=== PATIENT | female | born 1970 | race Caucasian/White ===

== ENCOUNTER 2022-09-07 08:13 | Outpatient (CLI) | payer BC, SELFPAY ==
[2022-09-07 17:38] LABS: MALB Creatinine Ratio 24.4 mg/g (0-30)
== END 2022-09-07 08:14 | disposition home or self-care (01) ==
LOC: ANHWCLAB 08:15
PROVIDERS: PCP Family Medicine; Visit Provider Internal Medicine Endocrinology, Diabetes & Metabolism
DX: E11.9 Type 2 diabetes mellitus without complications (principal); E04.9 Nontoxic goiter, unspecified
CPT/HCPCS: 36415; 82043; 83036; 84443

== ENCOUNTER 2023-05-13 18:14 | Emergency (ER) | payer SELFPAY ==
[2023-05-13 18:24] VITALS: BP 182/95; PULSE 103; RESP 18; TEMP 36.8; O2SAT 100
[2023-05-13 18:30] VITALS: O2SAT 100
[2023-05-13 18:58] VITALS: BP 165/96; PULSE 88; RESP 18; O2SAT 98
[2023-05-13 19:05] LABS: Strep Group A RT-PCR NOT DETECTED (Negative)
[2023-05-13 19:15] LABS: SARS-CoV-2 RNA PCR Negative (Negative)
[2023-05-13 19:17] LABS: Influenza A QL RT-PCR Positive (Negative); Influenza B QL RT-PCR Negative (Negative); RSV RNA, RT-PCR Negative (Negative)
--- NOTE | 2023-05-13 19:24 | ED.URI ---
HPI - URI/Sore Throat General Chief Complaint: Upper Respiratory Infection Stated Complaint: fever and sore throat Time Seen by Provider: 05/13/23 18:20 Source: patient Mode of arrival: ambulatory Limitations: no limitations History of Present Illness HPI Narrative: Patient is a 52-year-old female with significant past medical history presents today for URI symptoms. Patient has had cough, congestion, rhinorrhea, sore throat for the past 5 days. She is taking OTC medications with no relief. 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 She also does complain of body aches and how her symptoms resemble fluid. She has also had fevers on and off to 102. MD elicited complaint: fever, cough, sore throat, rhinorrhea, nasal congestion and sinus pain Onset (ago): day(s) Consistency: progressively worsening Severity: mild Description of mucous: yellow and green Able to tolerate fluids by mouth: Yes Exacerbating factors: speaking Relieving factors: nothing Context: sick contacts Associated symptoms: fever, chills, myalgias, headache, rhinorrhea, nasal congestion, sore throat and cough Treatments prior to arrival: acetaminophen, ibuprofen and cold medicine Related Data Home Medications Medication Instructions Recorded Confirmed ibuprofen 200 mg tablet 800 mg PO Q6H PRN Pain 06/13/22 05/13/23 insulin glargine-yfgn 100 unit/mL 10 unit subcut DAILY 01/10/23 05/13/23 (3 mL) subcutaneous pen (Semglee (insulin glargine-yfgn) Pen) Allergies Allergy/AdvReac Type Severity Reaction Status Date / Time Penicillins Allergy Mild rash Verified 05/13/23 18:21 Sulfa (Sulfonamide Allergy Mild Rash Verified 05/13/23 18:21 Antibiotics) Review of Systems Review of Systems: All systems reviewed & are unremarkable except as noted in HPI and below Constitutional: Constitutional: Reports as per HPI Eyes: Eyes: Reports no additional eye complaints ENT: Reports as per HPI, Reports dysphagia, Reports nasal congestion and Reports sore throat Cardiovascular: Cardiovascular: Reports no additional cardiovascular complaints Respiratory: Respiratory: Reports as per HPI, Reports chest congestion and Reports cough Gastrointestinal: Gastrointestinal: Reports no additional gastrointestinal complaints Genitourinary: Genitourinary: Reports no additional female genitourinary complaints Musculoskeletal: Musculoskeletal: Reports no additional musculoskeletal complaints Integumentary/Breasts: Skin/Breast: Reports system reviewed and no additional complaints, except as docu Neurologic: Reports system reviewed and no additional complaints, except as documented Psychiatric: Psychiatric: Reports no additional psychiatric complaints Endocrine: Endocrine: Reports no additional endocrine complaints Hematologic/Lymphatic: Hematologic/Lymphatic: Reports no additional hematologic/lymphatic complaints Allergic/Immunologic: Allergic/Immunologic: Reports no additional allergic/immunologic complaints PMFSH Surgical History Surgical History S/P cholecystectomy Social History Social History Smoking status: Never smoker Alcohol intake: never Substance use: never Exam Const: General: healthy appearing Nutritional Appearance: well nourished Orientation/consciousness: patient oriented x3 Limitations: no limitations HENMT: Head: normal to inspection Ears: external ears normal Face/Nose/Sinus: Nasal discharge present Face and sinus: sinus tenderness Mouth: Yes Normal oral and palatal mucosa present Teeth and gingiva: dentition normal Throat: posterior oropharynx normal Eyes: Conjunctivae: conjunctivae normal Pupils: Equal, round and reactive pupils present EOM: EOMs intact bilaterally Neck: Neck: normal visual inspection Chest: Chest palpation & inspection: normal inspection of the chest Resp: Effort &
[2023-05-13 19:35] VITALS: BP 172/104; PULSE 91; RESP 20; TEMP 38.2; O2SAT 91
== END 2023-05-13 19:37 | disposition home or self-care (01) ==
PROVIDERS: Emergency Provider Family Medicine; PCP Physician Assistant
DX: J10.1 Influenza due to other identified influenza virus with other respiratory manifestations (principal); J01.90 Acute sinusitis, unspecified; B96.89 Other specified bacterial agents as the cause of diseases classified elsewhere; Z79.4 Long term (current) use of insulin; Z79.1 Long term (current) use of non-steroidal anti-inflammatories (NSAID); Z20.822 Contact with and (suspected) exposure to COVID-19
CPT/HCPCS: 87637; 87651; 99283

== ENCOUNTER 2023-10-28 20:30 | Emergency (ER) | payer SELFPAY ==
--- NOTE | 2023-10-28 20:34 | ED.HA ---
HPI - Headache General Chief Complaint: Headache Stated Complaint: Migraine Time Seen by Provider: 10/28/23 20:32 Source: patient Mode of arrival: ambulatory Limitations: no limitations History of Present Illness HPI Narrative: Patient is a 52-year-old female with a right post ophthalmic and right post occipital migraine. She has a history of migraines. This is a similar headache to prior headaches. She said this 1 is bothering her now for 2 days. Associated nausea. MD elicited complaint: headache and migraine Onset (ago): day(s) (2) Onset description: gradually Location: right, occipital and retro-orbital Severity: moderate Pain scale (0-10): 8 Quality & Timing: throbbing, sharp and steady Exacerbating factors: light and noise Relieving factors: nothing Associated symptoms: nausea Treatments prior to arrival: none Related Data Home Medications Medication Instructions Recorded Confirmed ibuprofen 200 mg tablet 800 mg PO Q6H PRN Pain 06/13/22 10/28/23 Allergies Allergy/AdvReac Type Severity Reaction Status Date / Time Penicillins Allergy Mild rash Verified 05/13/23 18:21 Sulfa (Sulfonamide Allergy Mild Rash Verified 05/13/23 18:21 Antibiotics) Review of Systems Review of Systems: All systems reviewed & are unremarkable except as noted in HPI and below Constitutional: Constitutional: Reports no additional constitutional complaints Eyes: Eyes: Reports no additional eye complaints ENT: Reports system reviewed and no additional complaints, except as documented Cardiovascular: Cardiovascular: Reports no additional cardiovascular complaints Respiratory: Respiratory: Reports no additional respiratory complaints Gastrointestinal: Gastrointestinal: Reports no additional gastrointestinal complaints Genitourinary: Genitourinary: Reports no additional female genitourinary complaints Musculoskeletal: Musculoskeletal: Reports no additional musculoskeletal complaints Integumentary/Breasts: Skin/Breast: Reports system reviewed and no additional complaints, except as docu Neurologic: Reports system reviewed and no additional complaints, except as documented Psychiatric: Psychiatric: Reports no additional psychiatric complaints Endocrine: Endocrine: Reports no additional endocrine complaints Hematologic/Lymphatic: Hematologic/Lymphatic: Reports no additional hematologic/lymphatic complaints Allergic/Immunologic: Allergic/Immunologic: Reports no additional allergic/immunologic complaints PMFSH Surgical History Surgical History S/P cholecystectomy Social History Social History Smoking status: Never smoker Alcohol intake: never Substance use: never Exam Const: General: healthy appearing Nutritional Appearance: well nourished Orientation/consciousness: patient oriented x3 HENMT: Head: normal to inspection Ears: external ears normal Face/Nose/Sinus: Normal external nose present Eyes: Conjunctivae: conjunctivae normal Pupils: Equal, round and reactive pupils present EOM: EOMs intact bilaterally Neck: Neck: normal visual inspection Chest: Chest palpation & inspection: normal inspection of the chest Resp: Effort & Inspection: normal respiratory effort and not labored Auscultation: clear to auscultation bilaterally Cardio: Rate: regular rate Rhythm: regular rhythm Heart sounds: no murmurs GI: Inspection: non-distended GI Palp: Yes Soft to palpation and No Tenderness to palpation present (GI) Auscultation: normal bowel sounds : General: Yes bladder normal to palpation Back/Spine/Pelvis: Back: no CVA tenderness Skin: General skin exam: normal color Rashes: no rashes Wounds: no wounds Neuro: General: patient oriented x3 Cranial nerves: Yes Nystagmus not present Speech: normal speech Extrem: General: normal to inspection Psych: Mental Status: mental status gross
[2023-10-28 20:35] VITALS: BP 187/101; PULSE 95; RESP 18; TEMP 37.5; O2SAT 95
[2023-10-28] MEDS: SODIUM CHLORIDE 0.9% IV 1,000 ML 999 ML IV CONT (20:48)
[2023-10-28] MEDS: KETOROLAC 30 MG/ML VIAL (*BKC) IV PUSH (20:49)
[2023-10-28] MEDS: METOCLOPRAMIDE HCL INJ 10 MG/2 ML VIAL IV PUSH (20:49)
[2023-10-28] MEDS: diphenhydrAMINE HCl INJ 50 MG/ML VIAL 25 MG IV PUSH (20:49)
[2023-10-28 20:57] VITALS: BP 159/87; PULSE 93; RESP 18; O2SAT 93
[2023-10-28 21:03] VITALS: BP 165/95; PULSE 92; RESP 18; O2SAT 96
--- NOTE | 2023-10-28 21:05 | PC.NURSE ---
lights have been turned off. towel covering her eyes. blood pressure, pulse ox and heart rate being monitored. call light in reach. patient denies any needs at this time
[2023-10-28 21:32] VITALS: BP 144/64; O2SAT 95
--- NOTE | 2023-10-28 21:55 | PC.NURSE ---
patient reports that she feels better at this time. she is ready to go home. patient has approx 300ml left in ns bag. will finish infusion then work on discharge per ER provider
[2023-10-28 22:01] VITALS: BP 145/63; O2SAT 95
== END 2023-10-28 22:24 | disposition home or self-care (01) ==
PROVIDERS: Emergency Provider Emergency Medicine; PCP Family Medicine
DX: R51.9 Headache, unspecified (principal)
CPT/HCPCS: 96361; 96374; 96375; 99284; J1200; J1885; J2765; J7030

== ENCOUNTER 2025-04-11 17:18 | Emergency (ER) | payer SELFPAY ==
[2025-04-11] VITALS (9 sets, daily range): BP systolic 100–186; BP diastolic 79–122; PULSE 78–105; RESP 16–100; TEMP 36.9; O2SAT 93–100
--- NOTE | ~2025-04-11 | CT_ITS ---
[facility] EXAMINATION: CT abdomen pelvis w con COMPARISON: None HISTORY: Onset this AM, LUQ Abdominal pain/ vomiting; worsening TECHNIQUE: Axial images were obtained through the abdomen, pelvis post administration of IV contrast. Oral contrast was also administered. Coronal reconstruction images were obtained from the axial views. CT scan performed using dose optimization techniques including the following automated exposure control; adjustment of mA and/or kV; use of iterative reconstruction technique. Automatic exposure control was used to reduce radiation dose. Permanent radiation dose record is archived to PACS. FINDINGS: CT abdomen: LUNG BASES: The lung bases are clear. The visualized portions of the heart and pericardium are unremarkable. LIVER: Unremarkable, liver contours intact, no lesions. SPLEEN: Unremarkable. KIDNEYS: Right Kidney: Unremarkable. No calculi. No hydronephrosis. Left Kidney: Unremarkable. No calculi. No hydronephrosis ADRENAL GLANDS: Unremarkable. PANCREAS: Unremarkable. GALLBLADDER/BILIARY: Post cholecystectomy. STOMACH AND ESOPHAGUS: Small hiatal hernia. BOWEL/MESENTERY: Moderate fecal content. No colitis or diverticulitis. Appendix normal. Mesentery normal. There are no thickened or dilated loops of small bowel. ADENOPATHY/RETROPERITONEUM: No lymphadenopathy. AORTA/VASCULATURE: Normal caliber aorta. FREE FLUID OR FREE AIR: No free fluid.. CT pelvis: SOLID ORGANS/REPRODUCTIVE: Post hysterectomy. No adnexal mass. BLADDER: Within normal limits. OSSEOUS STRUCTURES: No acute osseous abnormality.No suspicious lesions. OVERLYING SOFT TISSUES: Unremarkable. IMPRESSION: 1. No etiology to explain left upper quadrant pain Reviewed, dictated and finalized at location [facility]
[2025-04-11] MEDS: PROCHLORPERAZINE EDISYLATE 10 MG/2 ML VIAL IV PUSH (17:51)
[2025-04-11] MEDS: SODIUM CHLORIDE 0.9% IV 1,000 ML 999 ML IV CONT (17:51)
[2025-04-11] MEDS: PANTOPRAZOLE SODIUM IV 40 MG VIAL IV PUSH (17:51)
[2025-04-11 18:14] LABS: Alanine Aminotransferase 32 U/L (6-35); Albumin Level 4.7 g/dL (3.5-5.1); Alkaline Phosphatase 84 U/L (38-126); Anion Gap 10 mmol/L (4-12); Aspartate Amino Transferase 34 U/L (14-36); Bilirubin,Total 0.7 mg/dL (0.2-1.3); Blood Urea Nitrogen 12 mg/dL (7-17); Calcium 9.4 mg/dL (8.4-10.2); Carbon Dioxide 27 mmol/L (22-30); Chloride 102 mmol/L (98-107); Estimated CRCL calculation 95 ml/min; Estimated Glomerular Filt Rate > 60; Glucose 139 mg/dL (65-110); Lipase 132 U/L (23-300); Osmolality Calculated 289 mOsm/kg (285-295); Potassium 3.4 mmol/L (3.4-5.0); Sodium 139 mmol/L (137-145); Total Protein 8.0 g/dL (6.3-8.2)
[2025-04-11 18:18] LABS: INR 1.0; Partial Thromboplastin Time 27.1 Sec (23.9-30.70); Prothrombin Time 10.9 Seconds (9.50-12.1)
[2025-04-11 18:19] LABS: Hematocrit 40.7 % (35.0-49.0); Hemoglobin 13.1 g/dL (12.0-15.0); Immature Granulocyte Percent A 0.4 % (0.0-0.0); Lymphocytes Absolute Auto 1.08 K/mm3 (1.10-4.50); Mean Corpuscular HGB Conc 32.2 g/dL (32-36); Mean Corpuscular Hemoglobin 28.2 pg (27.0-31.0); Mean Corpuscular Volume 87.7 fL (78.0-102.0); Nucleated Red Blood Cells Absolute Auto 0.00 K/mm3 (0.00-0.00); Nucleated Red Blood Cells Perc 0.0 % (0-0.0); Platelet Count Result 254 K/mm3 (150-420); Red Blood Count 4.64 M/mm3 (4.20-5.40); White Blood Count 10.6 K/mm3 (4.8-10.8)
--- NOTE | 2025-04-11 18:52 | PC.NURSE ---
ASSUMED CARE. REPORT RECEIVED FROM GRECIA CHOUDHARY. PATIENT IS CURRENTLY RESTING ON STRETCHER. IV FLUIDS COMPLETED. CURRENTLY WAITING ON TEST RESULTS. CALL LIGHT IN REACH.
--- NOTE | 2025-04-11 19:24 | ED_ITS ---
HPI - Nausea/Vomiting/Diarrhea General Chief complaint: Nausea/Vomiting/Diarrhea Stated complaint: vomiting Time Seen by Provider: 04/11/25 17:22 Source: patient Mode of arrival: ambulatory Limitations: no limitations History of Present Illness HPI Narrative: This is a 54-year-old female with history of diabetes apparently had some food from [employer] yesterday and has been having nausea vomiting with no fever chills mild abdominal discomfort mainly epigastric with no fever chills no diarrhea constipation no chest pain or shortness of breath. MD elicited complaint: nausea and vomiting Onset (ago): hour(s) Description of vomiting: watery Associated nausea: Yes Associated abdominal pain: Yes Location of pain: epigastric Pain consistency: constant Severity: mild Related Data Home Medications ?Medication ?Instructions ?Recorded ?Confirmed ?Last Taken ?Type ibuprofen 200 mg tablet 800 mg PO Q6H PRN Pain 06/1308/11/24 Unknown History Allergies Allergy/AdvReac Type Severity Reaction Status Date / Time Penicillins Allergy Mild rash Verified 04/11/25 17:23 Sulfa (Sulfonamide Allergy Mild Rash Verified 04/11/25 17:23 Antibiotics) Review of Systems 2 Review of Systems: All systems reviewed & are unremarkable except as noted in HPI and below PMFSH Surgical History Surgical History S/P cholecystectomy Social History Social History Smoking status: Never smoker Alcohol intake: never Substance use: never Exam 2 Const: General: healthy appearing and no acute distress Nutritional Appearance: well nourished Orientation/consciousness: patient oriented x3 Limitations: no limitations Neck: Neck: normal visual inspection, no lymphadenopathy and no meningeal signs Chest: Chest palpation & inspection: normal inspection of the chest Resp: Effort & Inspection: normal respiratory effort Auscultation: clear to auscultation bilaterally Cardio: Rate: regular rate Rhythm: regular rhythm GI: GI Palp: Yes Soft to palpation and Yes Tenderness to palpation present (GI) Auscultation: normal bowel sounds : General: Yes bladder normal to palpation Course Course Emergency Course: Medical decision making narrative: Patient was evaluated by myself in the emergency department. History obtained from the patient was independent historian and physical exam performed and witnessed by nurse. Labs performed were unremarkable reviewed with patient, patient received a L of normal saline a dose of Compazine and IV Protonix and after reassessment patient's discomfort has markedly improved. Repeat assessment: Patient is doing well on repeat exam no acute distress Symptoms have improved since arrival to the emergency department Repeat vitals are stable Patient agrees with this discussion after shared medical decision-making and agrees with discharge CT scan performed shows no acute intra-abdominal abnormalities All questions answered to the patient's satisfaction. Advised patient follow-up in 3 to 5 days. Vital Signs Vital signs: Vital Signs Temperature 36.9 C 04/11/25 17:18 Pulse Rate 105 H 04/11/25 17:18 Respiratory Rate 16 04/11/25 17:18 Blood Pressure 186/95 H 04/11/25 17:18 Pulse Oximetry 96 04/11/25 17:18 Oxygen Delivery Room Air 04/11/25 17:18 Temperature 36.9 C 04/11/25 17:18 Pulse Rate 100 04/11/25 18:36 Respiratory Rate 20 04/11/25 18:36 Blood Pressure 169/122 H 04/11/25 18:36 Pulse Oximetry 98 04/11/25 18:36 Oxygen Delivery Room Air 04/11/25 17:18 MDM Differential Diagnosis Differential Diagnosis: Gastroenteritis Lab Data 04/11/25 17:55 04/11/25 17:55 Labs: Lab Results 04/11/25 Range/Units 17:55 WBC 10.6 (4.8-10.8) K/mm3 RBC 4.64 (4.20-5.40) M/mm3 Hgb 13.1 (12.0-15.0) g/dL Hct 40.7 (35.0-49.0) % MCV 87.7 (78.0-102.0) fL MCH 28.2 (27.0-31.0) pg MCHC 32.2 (32-36) g/dL RDW 12.6 (11.6-14.4) % Plt Count 254 (150-420) K/mm3 MPV 9.3 (9.2-11.8) fl Immature Gran % (Auto) 0.4 H (0.0-0.0) % Neut % (Auto) 87.1 H (50.0-70.0) % Lymph % (Auto) 10.2 L (18.0-42.0) % [place] % (Auto) 1.9 L (2.0-11.0) % Eos % (Auto) 0.1 L (1.0-6.0) % Baso % (Auto) 0.3 (0.0-1.0) % Lymph # (Auto) 1.08 L (1.10-4.50) K/mm3 [place] # (Auto) 0.20 (0.10-0.90) K/mm3 Eos # (Auto) 0.01 L (0.02-0.50) K/mm3 Baso # (Auto) 0.03 (0.00-0.10) K/mm3 Abs Immat Gran (auto) 0.04 H (0.00-0.00) K/mm3 Absolute Neuts (auto) 9.20 H (1.70-7.20) K/mm3 Absolute Nucleated RBC 0.00 (0.00-0.00) K/mm3 Nucleated RBC % 0.0 (0-0.0) % PT 10.9 (9.50-12.1) Seconds INR 1.0 APTT 27.1 (23.9-30.70) Sec Sodium 139 (137-145) mmol/L Potassium 3.4 (3.4-5.0) mmol/L Chloride 102 (98-107) mmol/L Carbon Dioxide 27 (22-30) mmol/L Anion Gap 10 (4-12) mmol/L BUN 12 (7-17) mg/dL Creatinine 0.70 (0.7-1.0) mg/dL Estim Creat Clear Calc 95 ml/min Estimated GFR > 60 (59 - ) Glucose 139 H (65-110) mg/dL Calculated Osmolality 289 (285-295) mOsm/kg Lactic Acid 1.5 (0.7-2.0) mmol/L Calcium 9.4 (8.4-10.2) mg/dL Total Bilirubin 0.7 (0.2-1.3) mg/dL AST 34 (14-36) U/L ALT 32 (6-35) U/L Alkaline Phosphatase 84 (38-126) U/L Total Protein 8.0 (6.3-8.2) g/dL Albumin 4.7 (3.5-5.1) g/dL Lipase 132 (23-300) U/L Imaging Data Radiologist's impression: ITS Impressions Abdomen/Pelvis CT 04/11/25 18:59 IMPRESSION: 1. No etiology to explain left upper quadrant pain Critical Care Time Critical Care Time Critical Care Time: No Discharge Plan Discharge Clinical Impression: Gastroenteritis Patient Disposition: Home Condition: Stable Instructions: Antibiotic Form, Gastroenteritis (ED), Acute Nausea and Vomiting (ED) Additional Instructions: Advised take medication as prescribed and to follow with primary care physician within next 3 to 5 days for further evaluation treatment. Patient Language: Luxembourgish Prescriptions: New prochlorperazine maleate [Compazine] 10 mg tablet 10 mg PO Q6H PRN (Reason: nausea and vomiting) Qty: 14 0RF No Action (DME) pen needle, diabetic 32 gauge x 5/32 needle See Rx Instructions .ROUTE .MEDSUPPLY Qty: 100 2RF Rx Instructions: As directed semaglutide 2 mg/dose (8 mg/3 mL) pen injector 2 mg subcut WEEKLY 90 Days Qty: 9 2RF atorvastatin 20 mg tablet 20 mg PO DAILY Qty: 90 2RF (DME) Dexcom G7 Sensor Device See Rx Instructions .Route Qty: 9 2RF Rx Instructions: change every 10 days losartan 25 mg tablet 25 mg PO DAILY Qty: 90 2RF ibuprofen 200 mg tablet 800 mg PO Q6H PRN (Reason: Pain) insulin glargine [Lantus Solostar U-100 Insulin] 100 unit/mL (3 mL) insulin pen 10 unit subcut DAILY 90 Days Qty: 9 2RF cholecalciferol (vitamin D3) 1,250 mcg (50,000 unit) tablet 1,250 mcg PO WEEKLY Qty: 14 0RF Follow-up/Referrals: Kapil,MD Micheal [Primary Care Provider, Family Practice]
== END 2025-04-11 19:46 | disposition home or self-care (01) ==
PROVIDERS: Emergency Provider Emergency Medicine; PCP Family Medicine
DX: K52.9 Noninfective gastroenteritis and colitis, unspecified (principal); E11.9 Type 2 diabetes mellitus without complications
CPT/HCPCS: 36415; 74177; 80053; 83605; 83690; 85025; 85610; 85730; 96361; 96374; 96375; 99284; A4565; J0780; J2470; J7030; Q9967